=== PATIENT | male | born 1980 | race Caucasian/White ===

== ENCOUNTER 2018-02-13 16:25 | Emergency (ER) | payer OTHER ==
[~2018-02-13] VITALS: Ht 170.2 cm; Wt 222.7 kg
[~2018-02-13 16:25] MED LIST: ALBU0.0912 IH; AZIT250T11 PO; PRED20TA5 PO; PRED20TA6 PO
[2018-02-13 16:33] VITALS: BP 163/115
--- NOTE | 2018-02-13 16:35 | NUR ---
PT SENT TO LOBBY TO WAIT FOR ED BED/CHAIR.
--- NOTE | 2018-02-13 17:09 | NUR ---
PT AMBULATED TO BED 10.
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
[2018-02-13] MEDS ORDERED: KETOROLAC 30 MG/ML VIAL IM ONE (18:30)
[2018-02-13] MEDS ORDERED: HYDROcodone/APAP 5/325 MG 1 TAB TAB PO ONE (18:30)
--- NOTE | 2018-02-13 18:52 | NUR ---
PT TAKEN TO XRAY
--- NOTE | 2018-02-13 19:15 | NUR ---
RECEIVED REPORT FROM AM NURSE. PT BACK FROM XR, RESTING IN BED COMFORTABLY, RR EVEN AND UNLABORED. PT REPORTS RELIEF OF PAIN AT THIS TIME.
[2018-02-13 20:00] VITALS: BP 141/90
--- NOTE | 2018-02-13 20:05 | NUR ---
Patient discharged with v/s stable. Written and verbal after care instructions given and explained. Patient alert, oriented and verbalized understanding of instructions. Ambulatory with steady gait. All questions addressed prior to discharge. ID band removed. Patient advised to follow up with PMD. Rx of TRAMADOL, IBU given. Patient educated on indication of medication including possible reaction and side effects. Opportunity to ask questions provided and answered.
== END 2018-02-13 20:00 | disposition home or self-care (01) ==
LOC: MED 16:25
DX: S16.1XXA Strain of muscle, fascia and tendon at neck level, initial encounter (principal); S29.012A Strain of muscle and tendon of back wall of thorax, initial encounter; Z79.899 Other long term (current) drug therapy; V49.60XA Unspecified car occupant injured in collision with unspecified motor vehicles in traffic accident, initial encounter; Y93.89 Activity, other specified; Y92.488 Other paved roadways as the place of occurrence of the external cause; Y99.8 Other external cause status
CPT/HCPCS: 71046; 72040; 72100; 96372; 99284; J1885